=== PATIENT | male | born 1955 | race American Indian/Alaskan Native ===

== ENCOUNTER 2019-07-04 05:55 | Day surgery (SDC) | payer BC ==
[2019-07-04 06:51] LABS: Hematocrit 53.6 % (35.5-45.6); Hemoglobin 18.8 gm/dl (11.8-15.2); Mean Corpuscular HGB Conc 35 % (32-34); Mean Corpuscular Volume 84 fl (84-94); Platelet Count 234 K/mm3 (140-440); Red Cell Distribution Width 13.1 % (13.2-15.2)
[2019-07-04 07:03] LABS: Partial Thromboplastin Time 33.5 Sec. (24.2-36.6)
[2019-07-04] MEDS ORDERED: NACL 0.9% 500 ML 500 ML IV SCH (08:00)
[2019-07-04] MEDS ORDERED: ZOFRAN IV ONE (08:12)
[2019-07-04] MEDS ORDERED: DILAUDID IV ONE ×2 (08:12→09:59)
[2019-07-04] MEDS ORDERED: DILAUDID ONE ×2 (09:22→12:04)
--- NOTE | 2019-07-04 10:03 | Cat Scan Report ---
CT-GUIDED BIOPSY LEFT LUNG INDICATION : Left upper lobe lung mass. COMPARISON: PROCEDURE: The risks (including but not limited to bleeding and infection) and benefits were explain ed to the patient and informed consent was obtained. All CT scans at this location are performed usi ng CT dose reduction for ALARA by means of automated exposure control. A time out procedure was performed. The procedure site was prepped and draped in the usual sterile f ashion and lidocaine was used for local anesthesia. Anxiolysis was accomplished with IV Dilaudid and Zofran. Independent cardiorespiratory monitoring by RN. Intraobserver time of [address] guidance, a 19-gauge introducer needle was advanced to the leading edge of a 6.1 x 7.1 cm le ft upper lobe mass. 3 separate 2.2 cm 20-gauge core biopsies were obtained. Pathology was present and deemed the samples adequate. The patient tolerated the procedure well with no complications. A follow-up chest x-ray was ordered. IMPRESSION: Successful CT-guided biopsy of the left upper lobe lung mass as described. Signer Name: Adonis Hardy Jr, MD Signed: 07/04/2019 9:58 AM Workstation Name: [id number]
--- NOTE | 2019-07-04 12:03 | XRay Report ---
CHEST 1 VIEW INDICATION: Left upper lobe mass, recent CT-guided biopsy. COMPARISON: None FINDINGS: Support devices: None. Heart: Within normal limits. Left hilar adenopathy is suspected. Lungs/Pleura: Approximately 7 cm left upper lobe mass is noted. The remainder the lungs are generally clear. No evidence for pneumothorax. Additional findings: None. IMPRESSION: No evidence for pneumothorax. Signer Name: Adonis Hardy Jr, MD Signed: 07/04/2019 11:58 AM Workstation Name: [id number]
[2019-07-04 14:02] VITALS: BP 152/76
== END 2019-07-04 12:30 | disposition home or self-care (01) ==
LOC: CATHLABREC 05:55 → EDSTATUS 07:30 → CATHLABREC 12:30
PROVIDERS: ATTEND Specialist
DX: C34.12 Malignant neoplasm of upper lobe, left bronchus or lung (principal); H40.9 Unspecified glaucoma; F17.210 Nicotine dependence, cigarettes, uncomplicated; Z98.890 Other specified postprocedural states; Z79.899 Other long term (current) drug therapy; Z79.01 Long term (current) use of anticoagulants
CPT/HCPCS: 32405; 36415; 71045; 77012; 85027; 85610; 85730; 88305; 88333; 88341; 88342; 96374; 96375; J1170; J2405; 88173; J7040

== ENCOUNTER 2019-07-07 11:14 | Emergency (ER) | payer BC ==
--- NOTE | 2019-07-07 11:31 | Event Note ---
ED Screening Note Date of service: 07/07/19 Time: 11:27 ED Screening Note: 63 y/o male comes in for left upper back pain after having biopsy on . Was placed on Tramadol 50mg. Exam shows no site of concern on the left side. This initial assessment/diagnostic orders/clinical plan/treatment(s) is/are subject to change based on patients health status, clinical progression and re- assessment by fellow clinical providers in the ED. Further treatment and workup at subsequent clinical providers discretion. Patient/guardian urged not to elope from the ED as their condition may be serious if not clinically assessed and managed. Initial orders include:
[2019-07-07] MEDS ORDERED: ZOFRAN ODT PO ONE (12:14)
[2019-07-07] MEDS ORDERED: NORCO 10/325 PO ONE (12:14)
--- NOTE | 2019-07-07 12:38 | Emergency Department Report ---
ED General Adult HPI - General Chief complaint: Pain General Stated complaint: PAIN Time Seen by Provider: 07/07/19 11:27 Source: patient Mode of arrival: Wheelchair Limitations: No Limitations - History of Present Illness Initial comments: The patient presents to the emergency department with a chief complaint of left shoulder pain status post a bone biopsy. Patient states that he was given Ultram for pain control which has not been effective. Patient also states the Ultram makes him nauseous. Patient denies any shortness of breath, chest pain, abdominal pain. - Related Data Home Medications Medication Instructions Recorded Confirmed Last Taken Albuterol Sulfate [Proair 1 puff IH Q6HR PRN 07/04/19 07/04/19 Unknown Respiclick] Travoprost [Travatan Z] 1 drop OP QHS 07/04/19 07/04/19 07/03/19 traMADol [Ultram 50 MG tab] 50 mg PO Q6H PRN 07/04/19 07/04/19 07/03/19 18:00 Previous Rx's Medication Instructions Recorded Last Taken Type HYDROcodone/APAP 7.5-325 [[place] 1 each PO Q6HR PRN #15 tablet 07/07/19 Unknown Rx 7.5/325] Ondansetron [Zofran Odt] 4 mg PO Q4HR PRN #20 tab.rapdis 07/07/19 Unknown Rx Allergies Allergy/AdvReac Type Severity Reaction Status Date / Time No Known Allergies Allergy Verified 07/29/14 13:42 ED Review of Systems ROS: Stated complaint: PAIN Other details as noted in HPI Comment: All other systems reviewed and negative Constitutional: denies: chills, fever Eyes: denies: eye pain, eye discharge, vision change ENT: denies: ear pain, throat pain Respiratory: denies: cough, shortness of breath, wheezing Cardiovascular: denies: chest pain, palpitations Endocrine: no symptoms reported Gastrointestinal: denies: abdominal pain, nausea, diarrhea Genitourinary: denies: urgency, dysuria Musculoskeletal: denies: back pain, joint swelling, arthralgia Skin: denies: rash, lesions Neurological: denies: headache, weakness, paresthesias Psychiatric: denies: anxiety, depression Hematological/Lymphatic: denies: easy bleeding, easy bruising ED Past Medical Hx - Past Medical History Hx Diabetes: Yes (borderline diabetes) Hx Asthma: No Hx COPD: No Hx HIV: No Additional medical history: glaucoma - Surgical History Past Surgical History?: No - Social History Smoking Status: Current Every Day Smoker Substance Use Type: None - Medications Home Medications: Home Medications Medication Instructions Recorded Confirmed Last Taken Type Albuterol Sulfate [Proair 1 puff IH Q6HR PRN 07/04/19 07/04/19 Unknown History Respiclick] Travoprost [Travatan Z] 1 drop OP QHS 07/04/19 07/04/19 07/03/19 History traMADol [Ultram 50 MG tab] 50 mg PO Q6H PRN 07/04/19 07/04/19 07/03/19 18:00 History HYDROcodone/APAP 7.5-325 [[place] 1 each PO Q6HR PRN #15 tablet 07/07/19 Unknown Rx 7.5/325] Ondansetron [Zofran Odt] 4 mg PO Q4HR PRN #20 tab.rapdis 07/07/19 Unknown Rx ED Physical Exam - General Limitations: No Limitations General appearance: alert, in no apparent distress - Head Head exam: Present: atraumatic, normocephalic - Eye Eye exam: Present: normal appearance, PERRL, EOMI - ENT ENT exam: Present: mucous membranes moist - Neck Neck exam: Present: normal inspection - Respiratory Respiratory exam: Present: normal lung sounds bilaterally, other (patient has clear lung sounds to all 5 lobes). Absent: respiratory distress - Cardiovascular Cardiovascular Exam: Present: regular rate, normal rhythm. Absent: systolic murmur, diastolic murmur, rubs, gallop - GI/Abdominal GI/Abdominal exam: Present: soft, normal bowel sounds - Rectal Rectal exam: Present: deferred - Extremities Exam Extremities exam: Present: normal inspection, other (A she is tender over the area of the biopsy of the left shoulder there are no signs of surrounding cellulitis or infection) - Back Exam Back exam: Present: normal inspection - Neurological Exam Neurological exam: Present: alert, oriented X3 - Psychiatric Psychiatric exam: Present: normal affect, normal mood - Skin Skin exam: Present: warm, dry, intact, normal color. Absent: rash ED Course Vital Signs 07/07/19 07/07/19 07/07/19 11:27 12:00 12:08 Temperature 98.0 F 98.0 F Pulse Rate 64 61 61 Respiratory 20 18 18 Rate Blood Pressure 168/77 159/68 O2 Sat by Pulse 97 95 95 Oximetry ED Medical Decision Making - Medical Decision Making Plan of care discussed with patient Critical care attestation.: If time is entered above; I have spent that time in minutes in the direct care of this critically ill patient, excluding procedure time. ED Disposition Clinical Impression: Shoulder pain, left Disposition: DC-01 TO HOME OR SELFCARE Is pt being admited?: No Does the pt Need Aspirin: No Condition: Stable Additional Instructions: return if worse Referrals: [facility] [Provider Group] - 3-5 Days [facility] [Provider Group] - 3-5 Days Time of Disposition: 12:35
[2019-07-07 13:11] VITALS: BP 164/70
== END 2019-07-07 13:05 | disposition home or self-care (01) ==
LOC: ED 11:14
DX: M25.512 Pain in left shoulder (principal); E11.9 Type 2 diabetes mellitus without complications; F17.200 Nicotine dependence, unspecified, uncomplicated; Z79.899 Other long term (current) drug therapy
CPT/HCPCS: 99282; Q0162